=== PATIENT | female | born 1995 | race Two or more races ===

== ENCOUNTER 2025-02-21 10:51 | Emergency (ER) | payer OTHER ==
[~2025-02-21] VITALS: Ht 167.6 cm; Wt 84.1 kg
[2025-02-21 10:56] VITALS: BP 104/63; PULSE 64; RESP 18; TEMP 98.7; O2SAT 99
[2025-02-21 11:12] LABS: PLATELET COUNT (AUTO) 256 K/uL (150-450); RED BLOOD CELL COUNT(AUTO) 3.80 MIL/uL (4.00-5.20); RED CELL DISTRIBUTION WIDTH 12.7 % (11.5-14.5); WHITE BLOOD COUNT (AUTO) 5.1 K/uL (4.5-11.0)
[2025-02-21 12:37] LABS: APPEARANCE,URINE CLEAR (CLEAR); GLUCOSE, URINE (UA) NEGATIVE (NEGATIVE); LEUKOCYTE ESTERASE ,URINE NEGATIVE (NEGATIVE); NITRATE,URINE NEGATIVE (NEGATIVE); OCCULT BLOOD,URINE SMALL (NEGATIVE); SPECIFIC GRAVITIY, URINE 1.004 (1.003-1.030)
[2025-02-21 12:55] LABS: SQUAMOUS EPITHELIAL CELL,UR Rare /LPF (None Seen)
== END 2025-02-21 13:27 | disposition left against medical advice (07) ==
LOC: EMS 10:51
DX: O20.0 Threatened abortion (principal); Z87.59 Personal history of other complications of pregnancy, childbirth and the puerperium; Z53.29 Procedure and treatment not carried out because of patient's decision for other reasons; Z3A.00 Weeks of gestation of pregnancy not specified
CPT/HCPCS: 81001; 84702; 85025; 86901; 99283